=== PATIENT | male | born 1975 | race American Indian/Alaskan Native ===

== ENCOUNTER 2016-12-11 09:31 | Outpatient (CLI) | payer OTHER ==
[2016-12-11 10:20] LABS: Blood Urea Nitrogen 13 mg/dL (9-20)
[2016-12-11] MEDS ORDERED: NACL ONE (10:27)
--- NOTE | 2016-12-11 10:55 | Cat Scan Report ---
CT HEAD WITH AND WITHOUT CONTRAST INDICATION: Isoechoic mass in left posterior scalp. COMPARISON: None similar at this institution. FINDINGS: Pre-and post contrast head CT demonstrates normal ventricles and sulci without acute or recent infarct, hemorrhage, mass effect or midline shift. No abnormal extra-axial fluid collections. Posterior fossa structures and basilar cisterns appear within normal limits. No focal suspicious abnormal enhancement. Symmetric eye globes. Approximately 1 cm possible retention cyst along left maxillary sinus medial wall. Left more than right frontoethmoid sinusitis anteriorly. Clear remainder paranasal sinuses and mastoid air cells. Intact calvarium. An approximately 6.8 x 2.2 cm left parieto-occipital scalp lipoma incidentally noted. CONCLUSION: No acute intracranial CT abnormality with a large left parieto-occipital scalp lipoma, as described. Thank you for the opportunity to participate in this patient's care.
== END 2016-12-11 09:32 | disposition home or self-care (01) ==
LOC: CT 09:31
PROVIDERS: ATTEND Student in an Organized Health Care Education/Training Program
DX: D17.39 Benign lipomatous neoplasm of skin and subcutaneous tissue of other sites (principal); I10 Essential (primary) hypertension; J32.2 Chronic ethmoidal sinusitis; J32.1 Chronic frontal sinusitis
CPT/HCPCS: 36415; 70470; 82565; 84520; Q9967